=== PATIENT | male | born 1995 | race Caucasian/White ===

== ENCOUNTER 2018-12-29 11:31 | Emergency (ER) | payer OTHER ==
[~2018-12-29] VITALS: Ht 190.5 cm; Wt 126.6 kg
--- NOTE | 2018-12-29 11:35 | NUR ---
PT AMBULATES TO BED 8
[2018-12-29 11:38] VITALS: BP 156/78
--- NOTE | 2018-12-29 11:44 | NUR ---
Patient being evaluated by physician at bedside.
--- NOTE | 2018-12-29 11:48 | NUR ---
23/M BIB BROTHER C/O N/V/D X 2 DAYS. LOOSE STOOLS; UNABLE TO TOLERATE ANY PO'S C/O COUGH : DX WITH PNEUMONIA BY PMD CESAR >1 WK. HX--DENIES RX--MUCINEX. PATIENT STATES PAIN OF 0/10 AT THIS TIME. PATIENT POSITIONED FOR COMFORT; HOB ELEVATED; BEDRAILS UP X2; BED DOWN. ER MD MADE AWARE OF PT STATUS.
[2018-12-29] MEDS ORDERED: ALBUTEROL SULFATE/IPRATROPIU 3 ML SOL IH ONE (12:00)
[2018-12-29] MEDS ORDERED: cefTRIAXone 1,000 MG in LIDOCAINE 1% ***ER ONLY *** 2.1 ML IM ONE (12:00)
[2018-12-29] MEDS ORDERED: PROMETHAZINE 25 MG/ML VIAL IM ONE (12:00)
--- NOTE | 2018-12-29 12:11 | NUR ---
RT AT BEDSIDE
[2018-12-29] MEDS ORDERED: cefTRIAXone 1,000 MG VIAL ONE (12:12)
[2018-12-29] MEDS ORDERED: LIDOCAINE MPF 1% 5mL VIAL ONE (12:13)
[2018-12-29 13:35] VITALS: BP 130/80
--- NOTE | 2018-12-29 13:35 | NUR ---
Patient discharged with v/s stable. Written and verbal after care instructions given and explained. Patient alert, oriented and verbalized understanding of instructions. Ambulatory with steady gait. All questions addressed prior to discharge. ID band removed. Patient advised to follow up with PMD. Rx of PROMETHAZINE, PREDNISONE, ALBUTEROL& AZITHROMYCIN given. Patient educated on indication of medication including possible reaction and side effects. Opportunity to ask questions provided and answered.
== END 2018-12-29 13:35 | disposition home or self-care (01) ==
LOC: MED 11:31
DX: J45.901 Unspecified asthma with (acute) exacerbation (principal); R11.2 Nausea with vomiting, unspecified; R19.7 Diarrhea, unspecified
CPT/HCPCS: 94640; 96372; 99283; J0696; J2001; J2550; J7620